=== PATIENT | female | born 1950 | race Caucasian/White ===

== ENCOUNTER 2018-08-31 22:20 | Emergency (ER) | payer MEDICARE, BC ==
[~2018-08-31] VITALS: Ht 167.6 cm; Wt 104.3 kg
[~2018-08-31 22:20] MED LIST: ALBU90OI61 INH; ASPI325 PO; ASPI81EC PO; Acetaminophen325 M1 PO; BISA10S PR; BUDE6HFA INH; Byetta10 MCG/0.0 SQ; CEPH500 PO; Cranberry300 MG PO; Cyclobenzaprine5 MG PO; DIPH50 PO; Docusate Sodiu1 EACH PO; ESTR.05PBW TOP; ESTR25VT PV; GAVILAX17 GM PO; GLIP10 PO; GNP ONE DAILY400 MCG PO; Glucosamine &1 EACH PO; HYDACE5 PO; HYDACE5325 PO; HYDCHL25 PO; HYDR1TAB94 PO; Humalog100 UNIT/1; INSDET100 SC; LEVSOD100 PO; LISI20 PO; LORA10 PO; LOSA50 PO; LOSARTAN POTASS25 MG PO; LOVA40 PO; METF500 PO; METFORMIN HCL1000 MG PO; MULVITMIND PO; MULVITMINF PO; Norco 5-325 Ta1 EACH PO; OMEG1CAP30 PO; OMEP20ER PO; OMEP40CA12 PO; OXYB5 PO; PRED20 PO; Synthroid112 MCG PO; Tessalon200 MG PO; VERA120ERB PO; VERA240ER PO; Verapamil HCl360 MG PO; [UNRECOGNIZED DRUG - OTHER] PO
[2018-08-31 23:39] LABS: BASOPHILS ABSOLUTE AUTO 0.01 K/mm3 (0.00-0.23); BASOPHILS PERCENT AUTO 0 % (0-2); EOSINOPHILS ABSOLUTE AUTO 0.23 K/mm3 (0.00-0.68); EOSINOPHILS PERCENT AUTO 3 % (0-6); Hematocrit 35.6 % (33.0-51.0); Hemoglobin 11.6 g/dL (11.5-16.0); IMMATURE GRAN ABSOLUTE AUTO 0.08 K/mm3 (0.00-0.10); IMMATURE GRAN PERCENT AUTO 1 % (0-1); LYMPHOCYTES PERCENT AUTO 19 % (21-46); MONOCYTES PERCENT AUTO 9 % (4-13); Mean Corpuscular HGB 27.4 pg (26.0-34.0); Mean Corpuscular HGB Conc 32.6 g/dL (31.5-36.5); Mean Corpuscular Volume 84 fL (80-100); Mean Platelet Volume 8.8 fL (9.1-12.4); NEUTROPHILS ABSOLUTE AUTO 6.22 K/mm3 (1.96-9.15); NEUTROPHILS PERCENT AUTO 69 % (41-73); Platelet Count 420 K/mm3 (150-400); RDW Coefficient Variation 14.6 % (11.7-14.2); RDW Standard Deviation 44.7 fL (35.1-46.3); Red Blood Cell Count 4.23 M/mm3 (3.80-5.20); White Blood Cell Count 9.04 K/mm3 (4.00-11.30)
[2018-08-31] MEDS ORDERED: BUDE10.22 INH (23:53)
[2018-08-31] MEDS ORDERED: ALBU90OI61 INH (23:53)
[2018-08-31] MEDS ORDERED: LEVO750 PO (23:53)
[2018-08-31] MEDS ORDERED: Advair Hfa 230-12 GM (23:54)
[2018-09-01 00:02] LABS: Alanine Aminotransfer (ALT/SGP 15 U/L (12-78); Albumin, Blood 3.3 g/dL (3.4-5.0); Albumin/Globulin Ratio 0.7 (0.8-1.8); Alk Phos 82 U/L (50-136); Anion Gap 14 mmol/L (6-16); Aspartate Aminotrans (AST/SGOT 9 U/L (12-37); Bilirubin, Total 0.3 mg/dL (0.1-1.0); Blood Urea Nitrogen 10 mg/dL (8-24); Bun/Creatinine Ratio 10.9 (12.0-20.0); CO2, Blood 24 mmol/L (21-32); Calcium, Blood 9.1 mg/dL (8.5-10.1); Chloride, Blood 97 mmol/L (98-108); Creatinine, Blood 0.92 mg/dL (0.40-1.00); Globulin, Blood 4.6 g/dL (2.2-4.0); Glomerular Filtration Rate >60 (60-); Glucose, Blood 212 mg/dL (70-99); Potassium, Blood 3.9 mmol/L (3.5-5.5); Sodium, Blood 135 mmol/L (136-145); Total Protein, Blood 7.9 g/dL (6.4-8.2); Troponin I <0.015 ng/mL (0.000-0.040)
[2018-09-01] MEDS ORDERED: Prednisone20 MG PO (02:45)
[2018-09-01] MEDS ORDERED: Zofran4 MG PO (02:45)
== END 2018-09-01 03:10 | disposition home or self-care (01) ==
LOC: ER 22:20
PROVIDERS: Emergency Medicine
DX: J20.8 Acute bronchitis due to other specified organisms (principal); E86.0 Dehydration; R11.2 Nausea with vomiting, unspecified; E11.9 Type 2 diabetes mellitus without complications; I10 Essential (primary) hypertension; E03.9 Hypothyroidism, unspecified; Z88.0 Allergy status to penicillin; Z88.2 Allergy status to sulfonamides; Z79.899 Other long term (current) drug therapy; Z79.4 Long term (current) use of insulin
CPT/HCPCS: 36415; 71046; 80053; 83690; 83880; 84484; 85025; 93005; 93010; 96361; 96374; 99284-25; J2405; J7030

== ENCOUNTER 2018-09-12 22:20 | Emergency (ER) | payer MEDICARE, BC ==
[~2018-09-12] VITALS: Ht 167.6 cm; Wt 104.3 kg
[~2018-09-12 22:20] MED LIST changes: +Advair Hfa 230-12 GM; +BUDE10.22 INH; +LEVO750 PO; +Prednisone20 MG PO; +Zofran4 MG PO
== END 2018-09-13 03:37 | disposition home or self-care (01) ==
LOC: ER 22:20
DX: E11.649 Type 2 diabetes mellitus with hypoglycemia without coma (principal); Z88.0 Allergy status to penicillin; Z88.2 Allergy status to sulfonamides; Z91.030 Bee allergy status; Z79.899 Other long term (current) drug therapy; Z79.82 Long term (current) use of aspirin; Z79.4 Long term (current) use of insulin; Z79.52 Long term (current) use of systemic steroids; I10 Essential (primary) hypertension; E03.9 Hypothyroidism, unspecified
CPT/HCPCS: 82947; 96374; 96375; 99284-25; J2060; J2405

== ENCOUNTER → 2019-10-24 | Outpatient (CLI) | payer MEDICARE, BC ==
[~2019-10-24] MED LIST changes: +Buspirone HCl7.5 MG PO; +CAPTOPRIL HCTZ PO; +Calcium Ascorb500 MG PO; +LOSARTAN POTAS100 M1 PO; +Novolin R100 UNIT/M SC; +TRULICITY1.5 MG/0.5 SC; +VERA180ERB PO
== END ==
LOC: PLD 07:21 → LAB SHORT 07:21
DX: L72.3 Sebaceous cyst (principal)
CPT/HCPCS: 88304

== ENCOUNTER 2020-02-21 08:51 | Day surgery (SDC) | payer MEDICARE, BC ==
[~2020-02-21] VITALS: Ht 167.6 cm; Wt 97.3 kg
--- NOTE | 2020-02-21 10:28 | NUR ---
02/21/20 1028 April Ventura (Annalisa POOR PREP PER DR, INADEQUATE.
--- NOTE | 2020-02-21 11:08 | NUR ---
02/21/20 1108 April VenturaAnnalisa POST-PROCEDURE, PT BECAME EMOTIONAL, TEARY-EYE. PT STS "I'M JUST NOT RIGHT." PT COMFORTED AND REASSURED. SPOUSE THEN BROUGHT BACK TO ROOM. PT C/O NAUSEA. EMESIS BAG PROVIDED. PT DRY HEAVED SEVERAL TIMES WITHOUT PRODUCTION. SPOUSE VERY REASSURING, AND ENCOURAGING PT TO GET DRESSED, STATING SHE WILL BE MORE COMFORTABLE AT HOME. PT AGREEABLE, STILL TEARY EYED.
== END 2020-02-21 11:20 | disposition home or self-care (01) ==
LOC: ORSCSDS 08:51
PROVIDERS: Surgery
PROC: 0DBM8ZX Excision of Descending Colon, Via Natural or Artificial Opening Endoscopic, Diagnostic (ICD-10-PCS; principal; 2020-02-21 10:15)
DX: Z12.11 Encounter for screening for malignant neoplasm of colon (principal); K63.5 Polyp of colon; E11.9 Type 2 diabetes mellitus without complications; E03.9 Hypothyroidism, unspecified; E78.5 Hyperlipidemia, unspecified; Z79.82 Long term (current) use of aspirin; Z79.4 Long term (current) use of insulin; Z79.899 Other long term (current) drug therapy
CPT/HCPCS: 82947; 88305; J2704; J7120

== ENCOUNTER → 2020-11-04 | Outpatient (CLI) | payer MEDICARE, BC ==
[~2020-11-04] MED LIST changes: +ASCO500 PO; +BASAGLAR K100 UNIT/1 SC; +IMODIUM A-D2 M1 PO; +ONDA4ODT MM; +VITAMIN D310 MC4 PO
== END | disposition home or self-care (01) ==
LOC: PLD 12:34 → LAB SHORT 12:34
DX: D04.62 Carcinoma in situ of skin of left upper limb, including shoulder (principal)
CPT/HCPCS: 88305

== ENCOUNTER 2020-12-19 13:27 | Emergency (ER) | payer MEDICARE, BC ==
[~2020-12-19] VITALS: Ht 167.6 cm; Wt 87.1 kg
[~2020-12-19 13:27] MED LIST changes: -ASCO500 PO; -BASAGLAR K100 UNIT/1 SC; -IMODIUM A-D2 M1 PO; -ONDA4ODT MM; -VITAMIN D310 MC4 PO
[2020-12-19] MEDS ORDERED: BASAGLAR K100 UNIT/1 SC (16:53)
[2020-12-19 16:57] LABS: BASOPHILS ABSOLUTE AUTO 0.04 K/mm3 (0.00-0.23); BASOPHILS PERCENT AUTO 1 % (0-2); EOSINOPHILS ABSOLUTE AUTO 0.29 K/mm3 (0.00-0.68); EOSINOPHILS PERCENT AUTO 5 % (0-6); Hematocrit 32.4 % (33.0-51.0); Hemoglobin 10.9 g/dL (11.5-16.0); IMMATURE GRAN ABSOLUTE AUTO 0.02 K/mm3 (0.00-0.10); IMMATURE GRAN PERCENT AUTO 0 % (0-1); LYMPHOCYTES ABSOLUTE AUTO 2.02 K/mm3 (0.84-5.20); LYMPHOCYTES PERCENT AUTO 32 % (21-46); MONOCYTES ABSOLUTE AUTO 0.74 K/mm3 (0.16-1.47); MONOCYTES PERCENT AUTO 12 % (4-13); Mean Corpuscular HGB 27.9 pg (26.0-34.0); Mean Corpuscular HGB Conc 33.6 g/dL (31.5-36.5); Mean Corpuscular Volume 83 fL (80-100); Mean Platelet Volume 9.6 fL (9.1-12.4); NEUTROPHILS ABSOLUTE AUTO 3.27 K/mm3 (1.96-9.15); NEUTROPHILS PERCENT AUTO 51 % (41-73); Platelet Count 347 K/mm3 (150-400); RDW Coefficient Variation 13.8 % (11.7-14.2); RDW Standard Deviation 41.6 fL (35.1-46.3); White Blood Cell Count 6.38 K/mm3 (4.00-11.30)
[2020-12-19] MEDS ORDERED: VITAMIN D310 MC4 PO (17:04)
[2020-12-19] MEDS ORDERED: ASCO500 PO (17:05)
[2020-12-19] MEDS ORDERED: VERA180ERB PO (17:06)
[2020-12-19] MEDS ORDERED: OXYB5 PO (17:06)
[2020-12-19 17:37] LABS: Albumin, Blood 3.1 g/dL (3.4-5.0); Albumin/Globulin Ratio 0.7 (0.8-1.8); Bilirubin, Total 0.3 mg/dL (0.1-1.0); Creatinine, Blood 0.93 mg/dL (0.40-1.00); Globulin, Blood 4.6 g/dL (2.2-4.0); Glomerular Filtration Rate >60 (60-); Total Protein, Blood 7.7 g/dL (6.4-8.2)
[2020-12-19 18:11] LABS: Alanine Aminotransfer (ALT/SGP 11 U/L (12-78); Alk Phos 78 U/L (50-136); Anion Gap 7 mmol/L (6-16); Aspartate Aminotrans (AST/SGOT 6 U/L (12-37); Blood Urea Nitrogen 12 mg/dL (8-24); Bun/Creatinine Ratio 12.9 (12.0-20.0); CO2, Blood 28 mmol/L (21-32); Calcium, Blood 9.2 mg/dL (8.5-10.1); Chloride, Blood 96 mmol/L (98-108); Glucose, Blood 414 mg/dL (70-99); Potassium, Blood 4.2 mmol/L (3.5-5.5); Sodium, Blood 131 mmol/L (136-145)
[2020-12-19] MEDS ORDERED: IMODIUM A-D2 M1 PO (18:49)
[2020-12-19] MEDS ORDERED: HYDR1TAB94 PO (18:49)
[2020-12-19] MEDS ORDERED: ONDA4ODT MM (18:49)
[2020-12-19 18:50] LABS: Source, Urine Clean Catch
[2020-12-19 19:08] LABS: Bilirubin, Urine Neg (Neg); Blood, Urine 3+ (Neg); Glucose Qualitative, Urine 4+ (Neg); Ketones, Urine Neg (Neg); Leukocyte Esterase, Urine 3+ (Neg); Nitrite, Urine Pos (Neg); Protein, Urine 1+ (Neg); Urobilinogen, Urine NORM (Normal)
[2020-12-19 19:13] LABS: Appearance, Urine Hazy (Clear); Color, Urine Pale Yellow (P-Yellow)
[2020-12-19 19:15] LABS: Bacteria Many /hpf; Red Blood Cells, Urine 0-2 /hpf (0-2); Squamous Epithelial Cells Few /hpf (Few); White Blood Cells, Urine 50-100 /hpf (0-5)
== END 2020-12-19 19:08 | disposition home or self-care (01) ==
LOC: ER 13:27
PROVIDERS: Physician Assistant
DX: K52.9 Noninfective gastroenteritis and colitis, unspecified (principal); E11.9 Type 2 diabetes mellitus without complications; I10 Essential (primary) hypertension; E03.9 Hypothyroidism, unspecified; Z88.0 Allergy status to penicillin; Z88.2 Allergy status to sulfonamides; Z91.030 Bee allergy status; Z79.899 Other long term (current) drug therapy
CPT/HCPCS: 80053; 81001; 83690; 85025; 87077; 87086; 87186; 99284; A9270; J1170; J7030

== ENCOUNTER → 2021-03-19 | Outpatient (CLI) | payer MEDICARE, BC ==
[~2021-03-19] MED LIST changes: +ASCO500 PO; +BASAGLAR K100 UNIT/1 SC; +IMODIUM A-D2 M1 PO; +ONDA4ODT MM; +VITAMIN D310 MC4 PO
[2021-03-20 13:31] LABS: C DIFFICILE DNA NEGATIVE (Negative)
== END | disposition home or self-care (01) ==
LOC: LAB SHORT 10:02 → LAB 10:02
PROVIDERS: Nurse Practitioner Family
DX: R10.84 Generalized abdominal pain (principal); R19.7 Diarrhea, unspecified
CPT/HCPCS: 87493

== ENCOUNTER 2021-04-29 16:43 | Emergency (ER) | payer MEDICARE, BC ==
[~2021-04-29] VITALS: Ht 165.1 cm; Wt 83.0 kg
[2021-04-29] MEDS ORDERED: Norco 5-325 Ta1 EACH PO (20:08)
== END 2021-04-29 21:21 | disposition home or self-care (01) ==
LOC: ER 16:43
DX: S00.83XA Contusion of other part of head, initial encounter (principal); M54.2 Cervicalgia; E11.9 Type 2 diabetes mellitus without complications; I10 Essential (primary) hypertension; E03.9 Hypothyroidism, unspecified; Z88.0 Allergy status to penicillin; Z88.2 Allergy status to sulfonamides; Z91.030 Bee allergy status; Z91.041 Radiographic dye allergy status; Z88.8 Allergy status to other drugs, medicaments and biological substances; Z79.899 Other long term (current) drug therapy; Z79.82 Long term (current) use of aspirin; Z79.4 Long term (current) use of insulin; W01.0XXA Fall on same level from slipping, tripping and stumbling without subsequent striking against object, initial encounter
CPT/HCPCS: 70450; 70486; 72125; 99284-25; A9270; L0160

== ENCOUNTER → 2021-05-11 | Outpatient (CLI) | payer MEDICARE, BC | LOC: LAB SHORT 15:05 → LAB 15:05 | DX: L98.9 Disorder of the skin and subcutaneous tissue, unspecified (principal); Z88.0 Allergy status to penicillin; Z88.2 Allergy status to sulfonamides; E11.9 Type 2 diabetes mellitus without complications; Z79.84 Long term (current) use of oral hypoglycemic drugs; D23.62 Other benign neoplasm of skin of left upper limb, including shoulder; Z91.041 Radiographic dye allergy status; Z88.8 Allergy status to other drugs, medicaments and biological substances; Z91.038 Other insect allergy status | CPT/HCPCS: 88305; 88312 ==

== ENCOUNTER → 2021-09-15 | Outpatient (CLI) | payer MEDICARE, BC | END | disposition home or self-care (01) | LOC: LAB SHORT 07:53 → LAB 07:53 | DX: C44.319 Basal cell carcinoma of skin of other parts of face (principal) | CPT/HCPCS: 88305 ==

== ENCOUNTER 2022-06-03 12:02 | Day surgery (SDC) | payer MEDICARE, BC ==
--- NOTE | 2022-06-03 14:27 | NUR ---
06/03/22 1427 Sofy Ye CASE WAS CANCELLED BY DR DEE DUE TO HYPERTENSION IN PREOP. PT TAKEN TO ER VIA WHEELCHAIR PER DR'S RECOMMENDATION. PT STATED THAT SHE HAD ONLY TAKEN HER PRESCRIBED VERAPAMIL AND DID NOT TAKE HER PRESCRIBED [place] PRIOR TO [facility] PT AND PT'S VOICED UNDERSTANDING. PT LEFT WITH HER PERSONAL BELONGINGS.
== END 2022-06-03 13:30 | disposition home or self-care (01) ==
LOC: ORSCSDS 12:02
DX: L60.0 Ingrowing nail (principal); Z53.9 Procedure and treatment not carried out, unspecified reason
CPT/HCPCS: J2001; J2795

== ENCOUNTER 2022-06-03 13:28 | Emergency (ER) | payer MEDICARE, BC ==
[~2022-06-03] VITALS: Ht 167.6 cm; Wt 92.5 kg
== END 2022-06-03 13:57 | disposition home or self-care (01) ==
LOC: ER 13:28
DX: I10 Essential (primary) hypertension (principal); E11.9 Type 2 diabetes mellitus without complications; E03.9 Hypothyroidism, unspecified; Z88.0 Allergy status to penicillin; Z88.2 Allergy status to sulfonamides; Z88.8 Allergy status to other drugs, medicaments and biological substances; Z91.030 Bee allergy status; Z79.82 Long term (current) use of aspirin; Z79.4 Long term (current) use of insulin; Z79.899 Other long term (current) drug therapy; Z79.890 Hormone replacement therapy
CPT/HCPCS: 99282

== ENCOUNTER → 2022-06-26 | Outpatient (CLI) | payer MEDICARE, BC ==
[2022-06-28 10:02] LABS: Stool Occult Bld Immuno 1 Negative (NEGATIVE)
== END ==
LOC: LAB 12:30 → LAB SHORT 12:30
PROVIDERS: Nurse Practitioner Family
DX: Z12.11 Encounter for screening for malignant neoplasm of colon (principal)
CPT/HCPCS: G0328

== ENCOUNTER → 2022-06-30 | Outpatient (CLI) | payer MEDICARE, BC ==
[2022-07-07 12:10] LABS: M-SPIKE, % Not Observed % (Not Observed); PROTEIN,TOTAL,URINE 24.9 mg/dL (Not Estab.)
== END ==
LOC: LAB SHORT 13:00 → LAB 13:00
PROVIDERS: Nurse Practitioner Family
DX: R80.9 Proteinuria, unspecified (principal); N18.31 Chronic kidney disease, stage 3a
CPT/HCPCS: 84156; 84166

== ENCOUNTER 2022-08-11 13:25 | Emergency (ER) | payer MEDICARE, BC ==
[~2022-08-11] VITALS: Ht 167.6 cm; Wt 93.0 kg
[~2022-08-11 13:25] MED LIST changes: -OMEP40CA12 PO
[2022-08-11] MEDS ORDERED: VERA180ERB PO (15:14)
[2022-08-11] MEDS ORDERED: HYDCHL25 PO (15:16)
== END 2022-08-11 16:01 | disposition home or self-care (01) ==
LOC: ER 13:25
DX: S63.610A Unspecified sprain of right index finger, initial encounter (principal); E11.9 Type 2 diabetes mellitus without complications; I10 Essential (primary) hypertension; E03.9 Hypothyroidism, unspecified; W23.0XXA Caught, crushed, jammed, or pinched between moving objects, initial encounter; Z79.899 Other long term (current) drug therapy; Z79.890 Hormone replacement therapy; Z79.82 Long term (current) use of aspirin; Z79.4 Long term (current) use of insulin; Z88.0 Allergy status to penicillin; Z88.2 Allergy status to sulfonamides; Z88.8 Allergy status to other drugs, medicaments and biological substances; Z91.030 Bee allergy status
CPT/HCPCS: 73140; 90471; 90714; 99283-25

== ENCOUNTER 2023-12-14 11:07 | Emergency (ER) | payer MEDICARE, BC ==
[~2023-12-14] VITALS: Ht 167.6 cm; Wt 86.2 kg
[2023-12-14 11:32] VITALS: BP 153/80
== END 2023-12-14 13:20 | disposition home or self-care (01) ==
LOC: ER 11:07
DX: T81.41XA Infection following a procedure, superficial incisional surgical site, initial encounter (principal); L08.9 Local infection of the skin and subcutaneous tissue, unspecified; Z88.0 Allergy status to penicillin; Z88.2 Allergy status to sulfonamides; Z91.030 Bee allergy status; Z79.899 Other long term (current) drug therapy; Z79.82 Long term (current) use of aspirin; Z79.84 Long term (current) use of oral hypoglycemic drugs; E11.9 Type 2 diabetes mellitus without complications; I10 Essential (primary) hypertension; E03.9 Hypothyroidism, unspecified
CPT/HCPCS: 73630; 99283-25

== ENCOUNTER → 2024-07-08 | Outpatient (CLI) | payer MEDICARE, BC | END | disposition home or self-care (01) | LOC: LAB SHORT 09:05 → LAB 09:05 | DX: L03.012 Cellulitis of left finger (principal) | CPT/HCPCS: 87070; 87186; 87205 ==

== ENCOUNTER → 2024-12-12 | Outpatient (CLI) | payer MEDICARE, BC | LOC: LAB SHORT 20:30 → LAB 20:30 | DX: E11.65 Type 2 diabetes mellitus with hyperglycemia (principal); Z79.4 Long term (current) use of insulin | CPT/HCPCS: 82043 ==

== ENCOUNTER → 2025-01-15 | Outpatient (CLI) | payer MEDICARE, BC ==
[2025-01-15 12:07] LABS: Source, Urine Clean Catch
[2025-01-15 13:28] LABS: Appearance, Urine Hazy (Clear); Bilirubin, Urine Neg (Neg); Blood, Urine Neg (Neg); Glucose Qualitative, Urine 1+ (Neg); Ketones, Urine Neg (Neg); Leukocyte Esterase, Urine 2+ (Neg); Nitrite, Urine Neg (Neg); Protein, Urine 1+ (Neg); Urobilinogen, Urine NORM (Normal)
[2025-01-15 13:49] LABS: Color, Urine Pale Yellow (P-Yellow)
[2025-01-15 13:50] LABS: Bacteria Many /hpf; Red Blood Cells, Urine 0-2 /hpf (0-2); Squamous Epithelial Cells Rare /hpf (Few)
[2025-01-15 16:18] LABS: Creatinine, Urine Random 22.1 mg/dL (27.00-270.00); Protein, Urine Random 14.6 mg/dL (0.0-11.9); Protein/Creat Ratio, Ur Random 0.7
[2025-01-15 16:21] LABS: Microalb/Creat Ratio UR, Rand 174.208 mg/g (0.000-30.000); Microalbumin, Random Urine 38.5 mg/L (0.000-20.000)
== END ==
LOC: LAB 10:33 → LAB SHORT 10:33
PROVIDERS: Hospitalist
DX: E11.22 Type 2 diabetes mellitus with diabetic chronic kidney disease (principal); N18.4 Chronic kidney disease, stage 4 (severe)
CPT/HCPCS: 81001; 82043; 82570; 84156; 87077; 87086; 87186

== ENCOUNTER 2025-02-06 10:15 | Day surgery (SDC) | payer MEDICARE, BC ==
[~2025-02-06] VITALS: Ht 167.6 cm; Wt 93.4 kg
[~2025-02-06 10:15] MED LIST changes: +Balanced Salt Epinephrine Irrigation Solution 500 mL IR SCH; +Diazepam 5 MG Tab PO PRN; +Diazepam 5 MG Tab PO SCH; +Lidocaine HCl/Pf 1% 5 ML VIAL XX SCH; +Moxifloxacin HCL 0.5 MG/0.1 ML 0.4MLSYR RIGHTEYE SCH; +NS 500 ML IV ONE; +Ondansetron 4 MG SoluTab MM PRN; +PHENYLEPHRINE\\TROPICAMIDE\\TETRACAINE OPHTHALMIC DILATING SOLN RIGHTEYE PRN; +Povidone-Iodine 450 DROP/30 ML Solution ONE; +Povidone-Iodine 450 DROP/30 ML Solution RIGHTEYE SCH; +Tetracaine HCl/Pf 0.5% Opth Soln 4 ml ONE; +Triamcinolone Inj Susp 40 MG / ML 1ML Vial INJ SCH; +Triamcinolone Inj Susp 40 MG / ML 1ML Vial ONE
[2025-02-06] MEDS ORDERED: AMLO5 (11:01)
[2025-02-06] MEDS ORDERED: Carvedilol12.5 MG (11:02)
[2025-02-06] MEDS ORDERED: FLUC200 (11:03)
[2025-02-06] MEDS ORDERED: Crestor40 MG (11:04)
[2025-02-06] MEDS ORDERED: OZEMPIC0.25 MG/02 (11:05)
[2025-02-06] MEDS ORDERED: TELM80 (11:05)
[2025-02-06] MEDS ORDERED: ALOGLIPTIN6.25 M1 (11:21)
[2025-02-06] MEDS ORDERED: JARDIANCE10 MG (11:22)
[2025-02-06] MEDS ORDERED: LOVA40 (11:23)
[2025-02-06] MEDS ORDERED: NS 500 ML IV ONE (11:35)
--- NOTE | 2025-02-06 11:41 | NUR ---
02/06/25 Shahana Gee CONSULTED REGARDING PT BLOOD GLUCOSE LEVEL. PT GLUCOSE LEVEL WAS 311 TODAY AT 1110. THIS RN DISCUSSED WITH PT HOW MUCH INSULIN SHE WOULD TAKE AT HOME FOR A BLOOD GLUCOSE OF 311. PT STATED "4 UNITS OF NOVALOG" ADVISED TO GIVE THE PT 4 UNITS OF REGULAR INSULIN BUT THE PT INSISTED IT WOULD DROP HER BLOOD SUGAR TO LOW DUE TO THE FACT THAT SHE WOULD NOT BE EATING. PT REFUSED THE INSULIN. BOTH AND DISCUSSED WITH PT THAT THEY WILL PROCEED WITH SURGERY BUT FOR THE NEXT CATARACT SURGERY HER BLOOD GLUCOSE WILL NEED TO BE UNDER 300. PT WAS INSTRUCTED TO TAKE HALF DOSE OF HER INSULIN GLARGINE THE DAY BEFORE SURGERY AND NOT TO TAKE HER SHORT ACTING NOVALOG.
[2025-02-06] MEDS ORDERED: FentaNYL Citrate 50 MCG/ML 2 ML Injection ONE (11:43)
[2025-02-06] MEDS ORDERED: Midazolam HCl 1MG / ML 2ML Vial ONE (11:43)
[2025-02-06] MEDS ORDERED: Tetracaine HCl 0.5% Opth Soln 15 ml RIGHTEYE ONE (11:48)
--- NOTE | 2025-02-06 12:24 | NUR ---
02/06/25 Roberta4 Marta Urias PT TO [facility], INTIALLY ORIENTED TO PERSON ONLY, AFTER 15 MINS A&OX4. BG 281, TOLERATING PO, COOPERATIVE.
[2025-02-06 12:28] VITALS: BP 159/86
== END 2025-02-06 12:45 | disposition home or self-care (01) ==
LOC: ORSCSDS 10:15
PROVIDERS: Ophthalmology
PROC: 08RJ3JZ Replacement of Right Lens with Synthetic Substitute, Percutaneous Approach (ICD-10-PCS; principal; 2025-02-06 12:00)
DX: E11.36 Type 2 diabetes mellitus with diabetic cataract (principal); H25.813 Combined forms of age-related cataract, bilateral; H43.813 Vitreous degeneration, bilateral; H35.89 Other specified retinal disorders; E78.5 Hyperlipidemia, unspecified; K21.9 Gastro-esophageal reflux disease without esophagitis; E11.22 Type 2 diabetes mellitus with diabetic chronic kidney disease; I12.9 Hypertensive chronic kidney disease with stage 1 through stage 4 chronic kidney disease, or unspecified chronic kidney disease; N18.9 Chronic kidney disease, unspecified; F41.9 Anxiety disorder, unspecified; E03.9 Hypothyroidism, unspecified; Z79.82 Long term (current) use of aspirin; Z79.4 Long term (current) use of insulin; Z79.899 Other long term (current) drug therapy
CPT/HCPCS: 82947; J2250; J3010; J3301; J7040; V2632

== ENCOUNTER 2025-02-13 10:03 | Day surgery (SDC) | payer MEDICARE, BC ==
[~2025-02-13] VITALS: Ht 167.6 cm; Wt 92.8 kg
[~2025-02-13 10:03] MED LIST changes: +ALOGLIPTIN6.25 M1; +AMLO5; +Carvedilol12.5 MG; +Crestor40 MG; -Diazepam 5 MG Tab PO PRN; -Diazepam 5 MG Tab PO SCH; +FLUC200; +JARDIANCE10 MG; +LOVA40; -Lidocaine HCl/Pf 1% 5 ML VIAL XX SCH; +Moxifloxacin HCL 0.5 MG/0.1 ML 0.4MLSYR LEFTEYE SCH; -Moxifloxacin HCL 0.5 MG/0.1 ML 0.4MLSYR RIGHTEYE SCH; +OZEMPIC0.25 MG/02; -Ondansetron 4 MG SoluTab MM PRN; +PHENYLEPHRINE\\TROPICAMIDE\\TETRACAINE OPHTHALMIC DILATING SOLN LEFTEYE PRN; -PHENYLEPHRINE\\TROPICAMIDE\\TETRACAINE OPHTHALMIC DILATING SOLN RIGHTEYE PRN; +Povidone-Iodine 450 DROP/30 ML Solution LEFTEYE SCH; -Povidone-Iodine 450 DROP/30 ML Solution RIGHTEYE SCH; +TELM80
[2025-02-13] MEDS ORDERED: NS 500 ML IV ONE (10:54)
[2025-02-13] MEDS ORDERED: FentaNYL Citrate 50 MCG/ML 2 ML Injection ONE (11:51)
[2025-02-13] MEDS ORDERED: Tetracaine HCl 0.5% Opth Soln 15 ml XX ONE (11:51)
[2025-02-13] MEDS ORDERED: Midazolam HCl 1MG / ML 2ML Vial ONE (11:52)
[2025-02-13 12:19] VITALS: BP 158/69
== END 2025-02-13 12:35 | disposition home or self-care (01) ==
LOC: ORSCSDS 10:03
PROVIDERS: Ophthalmology
PROC: 08RK3JZ Replacement of Left Lens with Synthetic Substitute, Percutaneous Approach (ICD-10-PCS; principal; 2025-02-13 12:00)
DX: E11.36 Type 2 diabetes mellitus with diabetic cataract (principal); H25.812 Combined forms of age-related cataract, left eye; Z96.1 Presence of intraocular lens; K21.9 Gastro-esophageal reflux disease without esophagitis; E78.5 Hyperlipidemia, unspecified; H43.813 Vitreous degeneration, bilateral; I12.9 Hypertensive chronic kidney disease with stage 1 through stage 4 chronic kidney disease, or unspecified chronic kidney disease; N18.9 Chronic kidney disease, unspecified; E11.22 Type 2 diabetes mellitus with diabetic chronic kidney disease; Z79.82 Long term (current) use of aspirin; Z79.4 Long term (current) use of insulin; Z79.899 Other long term (current) drug therapy
CPT/HCPCS: 82947; J2250; J3010; J3301; J7040; V2632

== ENCOUNTER 2025-02-20 08:15 | Day surgery (SDC) | payer MEDICARE, BC ==
[~2025-02-20 08:15] MED LIST changes: -Balanced Salt Epinephrine Irrigation Solution 500 mL IR SCH; -Moxifloxacin HCL 0.5 MG/0.1 ML 0.4MLSYR LEFTEYE SCH; -NS 500 ML IV ONE; -PHENYLEPHRINE\\TROPICAMIDE\\TETRACAINE OPHTHALMIC DILATING SOLN LEFTEYE PRN; -Povidone-Iodine 450 DROP/30 ML Solution LEFTEYE SCH; -Povidone-Iodine 450 DROP/30 ML Solution ONE; -Tetracaine HCl/Pf 0.5% Opth Soln 4 ml ONE; -Triamcinolone Inj Susp 40 MG / ML 1ML Vial INJ SCH; -Triamcinolone Inj Susp 40 MG / ML 1ML Vial ONE
--- NOTE | 2025-02-20 10:22 | NUR ---
02/20/25 1021 Shahana Wilks CASE CANCELLED BY DR.HANSEN WADSWORTH TO PATIENT BLOOD SUGAR OF 372. PT D/C AT 1015. PT HAD ALL HER BELONGINGS WHICH INCLUDED BILAT HEARING AIDS, SHOES, AND PERSONAL BELONGING BAG. IV D/C'D AT 1005. SITE WAS WNL, CATHETER INTACT.
== END 2025-02-20 10:15 | disposition home or self-care (01) ==
LOC: ORSCSDS 08:15
DX: Z53.9 Procedure and treatment not carried out, unspecified reason (principal); Z86.0100 Personal history of colon polyps, unspecified
CPT/HCPCS: 82947; J2704; J7120